=== PATIENT | female | born 1965 | race Caucasian/White ===

== ENCOUNTER → 2018-10-12 | Outpatient (CLI) | payer BC ==
[~2018-10-12] MED LIST: ALBUTEROL INH; COUGH MEDICINE PO; FURO-93 PO; GADOBUTROL 7.5 MMOL/7.5 ML VIAL ONE; MAGNESIUM PO; POTASSIUM PO
== END | disposition home or self-care (01) ==
LOC: CFH 12:44 → MERGE 12:44
PROVIDERS: ATTEND Internal Medicine
DX: R91.8 Other nonspecific abnormal finding of lung field (principal); I31.3 Pericardial effusion (noninflammatory); N28.89 Other specified disorders of kidney and ureter; R59.0 Localized enlarged lymph nodes; G95.89 Other specified diseases of spinal cord; Z98.890 Other specified postprocedural states
CPT/HCPCS: 70553; 71250; A9585

== ENCOUNTER → 2018-10-17 | Outpatient (CLI) | payer BC ==
[~2018-10-17] MED LIST changes: -GADOBUTROL 7.5 MMOL/7.5 ML VIAL ONE; +SIMV40TA3 PO
== END | disposition home or self-care (01) ==
LOC: MERGE 07:21 → PETCFH 07:21
PROVIDERS: ATTEND Internal Medicine
DX: C79.51 Secondary malignant neoplasm of bone (principal); C77.2 Secondary and unspecified malignant neoplasm of intra-abdominal lymph nodes; N28.89 Other specified disorders of kidney and ureter; J90 Pleural effusion, not elsewhere classified; K57.30 Diverticulosis of large intestine without perforation or abscess without bleeding
CPT/HCPCS: 78815; A9552

== ENCOUNTER 2018-10-22 10:54 | Inpatient (IN) | payer BC ==
[~2018-10-22] VITALS: Ht 175.3 cm; Wt 70.0 kg
[~2018-10-22 10:54] MED LIST changes: -SIMV40TA3 PO
[2018-10-22 14:36] VITALS: BP 123/80
[2018-10-22] MEDS ORDERED: SIMV40TA3 PO (15:21)
[2018-10-22] MEDS ORDERED: morphine SULFATE 10 MG/ML, 1ML IVPush PRN (15:30)
[2018-10-22] MEDS ORDERED: hydrALAzine 20 MG/ML, 1ML IVPush PRN (15:30)
[2018-10-22] MEDS ORDERED: ONDANSETRON 2MG/ML, 2ML IVPush PRN (15:30)
[2018-10-22] MEDS ORDERED: ACETAMINOPHEN 325 MG TABLET PO PRN (15:30)
[2018-10-22 15:58] LABS: BASOPHILS # (AUTO) 0.03 x10^3/uL (0-0.1); BASOPHILS % (AUTO) 0 % (0-1); EOSINOPHILS % (AUTO) 0 % (1-7); LYMPHOCYTES # (AUTO) 1.22 x10^3/uL (1-3.4); LYMPHOCYTES % (AUTO) 11 % (22-44); MD NO; MEAN CORPUSCULAR HEMOGLOBIN 28.8 pg (27.0-34.8); MEAN CORPUSCULAR HGB CONC 33.1 g/dL (32.4-35.8); MEAN CORPUSCULAR VOLUME 87.2 fL (80-100); MEAN PLATELET VOLUME 9.4 fL (7.4-10.4); MONOCYTES # (AUTO) 0.83 x10^3/uL (0.2-0.8); MONOCYTES % (AUTO) 8 % (2-9); NEUTROPHILS # (AUTO) 8.67 x10^3/uL (1.8-6.8); NEUTROPHILS % (AUTO) 81 % (42-75); PLATELET COUNT 318 x10^3/uL (130-400); RED BLOOD COUNT 5.14 x10^6/uL (3.82-5.3); RED CELL DISTRIBUTION WIDTH 12.5 % (9.6-15.2)
[2018-10-22] MEDS: INSULIN LISPRO 100 UNITS/ML, PEN SQ-INSULIN SCH ×2 (15:58→20:39)
[2018-10-22] MEDS ORDERED: ALBUTEROL SULFATE 2.5 MG/3 ML NPPB PRN ×2 (16:00→22:00)
[2018-10-22] MEDS ORDERED: GLUCAGON 1 MG IM PRN (16:00)
[2018-10-22] MEDS ORDERED: DEXTROSE 50%, 50ML SYRINGE IVPush PRN (16:00)
[2018-10-22] MEDS ORDERED: DEXTROSE 4 GM TAB.CHEW PO PRN (16:00)
[2018-10-22 16:05] LABS: ALANINE AMINOTRANSFERASE 22 U/L (12-78); ALBUMIN 3.1 g/dL (3.4-5.0); ANION GAP 10 mmol/L (5-15); CALCIUM 9.6 mg/dL (8.5-10.1); CHLORIDE 85 mmol/L (98-107)
[2018-10-22 16:10] LABS: ALKALINE PHOSPHATASE 72 U/L (45-117); BILIRUBIN,TOTAL 0.4 mg/dL (0.2-1.0); TOTAL PROTEIN 6.5 g/dL (6.4-8.2)
[2018-10-22] MEDS ORDERED: POTASSIUM CHLORIDE 20 MEQ TAB.ER.PRT PO ONE (16:30)
[2018-10-22 16:31] LABS: INTERNATIONAL NORMALIZED RATIO 1.06 (0.93-1.1); PROTHROMBIN TIME 11.1 Seconds (9.6-11.5)
[2018-10-22 17:08] LABS: HEMOGLOBIN A1C 6.6 % (4.2-6.3)
[2018-10-22 19:02] VITALS: BP 112/72
[2018-10-22] MEDS: SIMVASTATIN 40 MG TABLET PO SCH (20:40)
[2018-10-22] MEDS ORDERED: DIPHENHYDRAMINE 50 MG CAPSULE PO PRN (21:00)
[2018-10-22] MEDS ORDERED: SODIUM CHLORIDE FLUSH 10ML SYR IVF SCH (21:00)
[2018-10-23 01:51] VITALS: BP 106/67
[2018-10-23] MEDS: OXYcodone IR 5MG TABLET PO PRN ×4 (02:52→20:16)
[2018-10-23 04:38] LABS: ANION GAP 10 mmol/L (5-15); CHLORIDE 87 mmol/L (98-107)
[2018-10-23 04:42] LABS: ALANINE AMINOTRANSFERASE 22 U/L (12-78); ALKALINE PHOSPHATASE 70 U/L (45-117); BILIRUBIN,TOTAL 0.8 mg/dL (0.2-1.0); CREATININE 0.62 mg/dL (0.55-1.02); TOTAL PROTEIN 6.6 g/dL (6.4-8.2)
[2018-10-23 06:26] LABS: BASOPHILS # (AUTO) 0.03 x10^3/uL (0-0.1); BASOPHILS % (AUTO) 0 % (0-1); EOSINOPHILS # (AUTO) 0.02 x10^3/uL (0-0.4); EOSINOPHILS % (AUTO) 0 % (1-7); LYMPHOCYTES # (AUTO) 2.38 x10^3/uL (1-3.4); LYMPHOCYTES % (AUTO) 18 % (22-44); MD NO; MEAN CORPUSCULAR HEMOGLOBIN 29.1 pg (27.0-34.8); MEAN CORPUSCULAR HGB CONC 33.6 g/dL (32.4-35.8); MEAN CORPUSCULAR VOLUME 86.7 fL (80-100); MEAN PLATELET VOLUME 9.3 fL (7.4-10.4); MONOCYTES # (AUTO) 1.29 x10^3/uL (0.2-0.8); MONOCYTES % (AUTO) 10 % (2-9); NEUTROPHILS % (AUTO) 73 % (42-75); PLATELET COUNT 320 x10^3/uL (130-400); RED BLOOD COUNT 5.28 x10^6/uL (3.82-5.3); RED CELL DISTRIBUTION WIDTH 12.8 % (9.6-15.2)
[2018-10-23] MEDS: INSULIN LISPRO 100 UNITS/ML, PEN SQ-INSULIN SCH (07:00)
[2018-10-23 07:33] VITALS: BP 112/71
[2018-10-23] MEDS ORDERED: METHOCARBAMOL 500 MG TABLET PO PRN (08:30)
[2018-10-23] MEDS ORDERED: NALOXONE 1 MG/ML, 2ML ONE (09:09)
[2018-10-23] MEDS ORDERED: FLUMAZENIL 0.1 MG/1 ML, 5ML ONE (09:09)
[2018-10-23] MEDS ORDERED: MIDAZOLAM 1 MG/ML, 5ML ONE (09:09)
[2018-10-23] MEDS ORDERED: FENTANYL PF 100 MCG/2ML ONE (09:09)
[2018-10-23] MEDS ORDERED: POTASSIUM CHLORIDE 20 MEQ TAB.ER.PRT PO ONE (12:00)
[2018-10-23 13:45] VITALS: BP 110/79
[2018-10-23 19:07] VITALS: BP 111/69
[2018-10-23] MEDS: SIMVASTATIN 40 MG TABLET PO SCH (20:17)
[2018-10-24 01:07] VITALS: BP 137/79
[2018-10-24] MEDS: OXYcodone IR 5MG TABLET PO PRN ×5 (03:54→20:23)
[2018-10-24 05:40] LABS: ALANINE AMINOTRANSFERASE 27 U/L (12-78); ANION GAP 7 mmol/L (5-15); CALCIUM 9.6 mg/dL (8.5-10.1); CHLORIDE 89 mmol/L (98-107); CREATININE 0.47 mg/dL (0.55-1.02)
[2018-10-24 05:42] LABS: ALKALINE PHOSPHATASE 93 U/L (45-117); BILIRUBIN,TOTAL 0.9 mg/dL (0.2-1.0); TOTAL PROTEIN 6.4 g/dL (6.4-8.2)
[2018-10-24 07:45] VITALS: BP 123/76
[2018-10-24 08:46] LABS: BASOPHILS # (AUTO) 0.03 x10^3/uL (0-0.1); BASOPHILS % (AUTO) 0 % (0-1); EOSINOPHILS # (AUTO) 0.05 x10^3/uL (0-0.4); EOSINOPHILS % (AUTO) 0 % (1-7); LYMPHOCYTES # (AUTO) 1.34 x10^3/uL (1-3.4); LYMPHOCYTES % (AUTO) 9 % (22-44); MD NO; MEAN CORPUSCULAR HEMOGLOBIN 28.9 pg (27.0-34.8); MEAN CORPUSCULAR HGB CONC 33.2 g/dL (32.4-35.8); MEAN CORPUSCULAR VOLUME 87.2 fL (80-100); MEAN PLATELET VOLUME 9.1 fL (7.4-10.4); MONOCYTES # (AUTO) 1.12 x10^3/uL (0.2-0.8); MONOCYTES % (AUTO) 7 % (2-9); NEUTROPHILS # (AUTO) 13.09 x10^3/uL (1.8-6.8); NEUTROPHILS % (AUTO) 84 % (42-75); PLATELET COUNT 267 x10^3/uL (130-400); RED BLOOD COUNT 5.39 x10^6/uL (3.82-5.3); RED CELL DISTRIBUTION WIDTH 12.6 % (9.6-15.2)
[2018-10-24 08:57] LABS: ANION GAP 8 mmol/L (5-15); CALCIUM 9.7 mg/dL (8.5-10.1); CHLORIDE 87 mmol/L (98-107); CREATININE 0.53 mg/dL (0.55-1.02)
[2018-10-24] MEDS ORDERED: POTASSIUM CHLORIDE 20 MEQ TAB.ER.PRT PO ONE ×2 (09:00→14:30)
[2018-10-24] MEDS ORDERED: FUROSEMIDE 20 MG TABLET PO ONE (11:00)
[2018-10-24 13:20] VITALS: BP 116/75
[2018-10-24] MEDS ORDERED: FUROSEMIDE 40 MG/4 ML IV ONE (14:30)
[2018-10-24 17:34] VITALS: BP 131/70
[2018-10-24 19:43] VITALS: BP 117/73
[2018-10-24] MEDS: SIMVASTATIN 40 MG TABLET PO SCH (20:24)
[2018-10-25 03:09] VITALS: BP 115/69
[2018-10-25 04:26] LABS: MEAN CORPUSCULAR HEMOGLOBIN 28.9 pg (27.0-34.8); MEAN CORPUSCULAR HGB CONC 33.2 g/dL (32.4-35.8); MEAN CORPUSCULAR VOLUME 87.3 fL (80-100); MEAN PLATELET VOLUME 9.6 fL (7.4-10.4); PLATELET COUNT 254 x10^3/uL (130-400); RED BLOOD COUNT 5.29 x10^6/uL (3.82-5.3); RED CELL DISTRIBUTION WIDTH 12.5 % (9.6-15.2)
[2018-10-25] MEDS: OXYcodone IR 5MG TABLET PO PRN ×4 (04:27→20:38)
[2018-10-25 04:36] LABS: ANION GAP 9 mmol/L (5-15); CHLORIDE 89 mmol/L (98-107); CREATININE 0.58 mg/dL (0.55-1.02)
[2018-10-25 05:45] LABS: BASOPHILS # (AUTO) 0.04 x10^3/uL (0-0.1); BASOPHILS % (AUTO) 0 % (0-1); EOSINOPHILS # (AUTO) 0.05 x10^3/uL (0-0.4); EOSINOPHILS % (AUTO) 0 % (1-7); LYMPHOCYTES # (AUTO) 1.33 x10^3/uL (1-3.4); LYMPHOCYTES % (AUTO) 7 % (22-44); MD SCAN; MONOCYTES # (AUTO) 1.32 x10^3/uL (0.2-0.8); MONOCYTES % (AUTO) 7 % (2-9); NEUTROPHILS # (AUTO) 15.32 x10^3/uL (1.8-6.8); NEUTROPHILS % (AUTO) 85 % (42-75)
[2018-10-25 07:25] VITALS: BP 117/55
[2018-10-25] MEDS ORDERED: ALBUTEROL SULFATE 2.5 MG/3 ML NPPB PRN (07:30)
[2018-10-25] MEDS ORDERED: POTASSIUM CHLORIDE 20 MEQ TAB.ER.PRT PO ONE (09:00)
[2018-10-25] MEDS ORDERED: FUROSEMIDE 40 MG/4 ML IV SCH (09:00)
[2018-10-25] MEDS ORDERED: PIPERACILLIN/TAZO/PMX 3.375GM 50 ML IV SCH (10:00)
[2018-10-25 12:08] VITALS: BP 122/76
[2018-10-25] MEDS ORDERED: PANTOPRAZOLE 40 MG IV IVPush SCH (16:30)
[2018-10-25] MEDS ORDERED: LORazepam 2 MG/ML, 1ML IVPush ONE (16:30)
[2018-10-25 19:58] VITALS: BP 121/75
[2018-10-25] MEDS: SIMVASTATIN 40 MG TABLET PO SCH (20:38)
[2018-10-25] MEDS: LORazepam 0.5MG TABLET PO PRN (20:38)
[2018-10-26 00:59] VITALS: BP 116/74
[2018-10-26] MEDS: OXYcodone IR 5MG TABLET PO PRN ×4 (01:22→15:52)
[2018-10-26] MEDS ORDERED: PANTOPRAZOLE 20MG TABLET PO SCH (06:00)
[2018-10-26 07:12] LABS: BASOPHILS # (AUTO) 0.02 x10^3/uL (0-0.1); BASOPHILS % (AUTO) 0 % (0-1); EOSINOPHILS # (AUTO) 0.06 x10^3/uL (0-0.4); EOSINOPHILS % (AUTO) 0 % (1-7); LYMPHOCYTES # (AUTO) 1.51 x10^3/uL (1-3.4); LYMPHOCYTES % (AUTO) 10 % (22-44); MD NO; MEAN CORPUSCULAR HEMOGLOBIN 28.9 pg (27.0-34.8); MEAN CORPUSCULAR HGB CONC 33.1 g/dL (32.4-35.8); MEAN CORPUSCULAR VOLUME 87.1 fL (80-100); MONOCYTES % (AUTO) 9 % (2-9); NEUTROPHILS # (AUTO) 12.12 x10^3/uL (1.8-6.8); NEUTROPHILS % (AUTO) 81 % (42-75); PLATELET COUNT 219 x10^3/uL (130-400); RED BLOOD COUNT 5.17 x10^6/uL (3.82-5.3); RED CELL DISTRIBUTION WIDTH 12.4 % (9.6-15.2)
[2018-10-26 07:22] LABS: ANION GAP 8 mmol/L (5-15); CALCIUM 9.8 mg/dL (8.5-10.1); CHLORIDE 91 mmol/L (98-107); CREATININE 0.54 mg/dL (0.55-1.02)
[2018-10-26 08:40] VITALS: BP 117/73
[2018-10-26] MEDS ORDERED: POTASSIUM CHLORIDE 10% 40 MEQ/30 ML UDC PO ONE (09:00)
[2018-10-26] MEDS ORDERED: FUROSEMIDE 40 MG/4 ML IV ONE (09:00)
[2018-10-26] MEDS ORDERED: DIPH50CA PO (09:07)
[2018-10-26] MEDS ORDERED: ONDA4TAB13 SL (09:07)
[2018-10-26] MEDS ORDERED: OXYC5TAB3 PO (09:07)
[2018-10-26] MEDS ORDERED: PANT20TA3 PO (09:07)
[2018-10-26] MEDS ORDERED: LORA0.5T PO (09:07)
[2018-10-26] MEDS ORDERED: POTASSIUM CHLORIDE 20 MEQ TAB.ER.PRT ONE (10:06)
[2018-10-26] MEDS: LORazepam 0.5MG TABLET PO PRN (15:52)
[2018-10-27] MEDS ORDERED: SPIRONOLACTONE 25 MG TABLET PO SCH (09:00)
== END 2018-10-26 15:54 | disposition home or self-care (01) | DRG 686 ==
LOC: 5SO 14:16 → 3NW 10-24 17:07 → DCLOUNGE 10-26 15:39
PROVIDERS: ADMIT Internal Medicine; ATTEND Internal Medicine
PROC: 0TB03ZX Excision of Right Kidney, Percutaneous Approach, Diagnostic (ICD-10-PCS; principal; 2018-10-23)
DX: C64.9 Malignant neoplasm of unspecified kidney, except renal pelvis (principal); J96.91 Respiratory failure, unspecified with hypoxia; E87.1 Hypo-osmolality and hyponatremia; C78.00 Secondary malignant neoplasm of unspecified lung; C79.51 Secondary malignant neoplasm of bone; J81.1 Chronic pulmonary edema; J90 Pleural effusion, not elsewhere classified; C79.89 Secondary malignant neoplasm of other specified sites; C77.9 Secondary and unspecified malignant neoplasm of lymph node, unspecified; E87.6 Hypokalemia; F41.9 Anxiety disorder, unspecified; I48.91 Unspecified atrial fibrillation; J30.2 Other seasonal allergic rhinitis; Z51.5 Encounter for palliative care; Z87.01 Personal history of pneumonia (recurrent); Z87.891 Personal history of nicotine dependence; R73.9 Hyperglycemia, unspecified
CPT/HCPCS: 36415; 50200; 71045; 71046; 71250; 77012; 80048; 80053; 82962; 83036; 83605; 83735; 83880; 84100; 84145; 85025; 85610; 87040; 88305; 93306; 93970; 99156; 99157; G0378; J1940; J2250; J3010; C9113; J2060; J2270; J2310

== ENCOUNTER 2018-11-05 00:22 | Inpatient (IN) | payer BC ==
[~2018-11-05] VITALS: Ht 170.2 cm; Wt 67.3 kg
[2018-11-10 04:00] VITALS: BP 108/71
== END 2018-11-10 15:10 | disposition expired | DRG 686 ==
LOC: ED 00:56 → EDIP 01:34 → 4EST 02:22 → CCU 11-08 17:47 → ICU 11-09 19:26 → 3NW 11-10 08:33
PROVIDERS: ADMIT Internal Medicine; ATTEND Internal Medicine
DX: C64.1 Malignant neoplasm of right kidney, except renal pelvis (principal); J15.9 Unspecified bacterial pneumonia; J96.01 Acute respiratory failure with hypoxia; I31.3 Pericardial effusion (noninflammatory); C79.51 Secondary malignant neoplasm of bone; I50.30 Unspecified diastolic (congestive) heart failure; J98.19 Other pulmonary collapse; R18.8 Other ascites; C78.00 Secondary malignant neoplasm of unspecified lung; R13.10 Dysphagia, unspecified; F17.210 Nicotine dependence, cigarettes, uncomplicated; F41.1 Generalized anxiety disorder; G89.29 Other chronic pain; Y95 Nosocomial condition; I11.0 Hypertensive heart disease with heart failure; I48.91 Unspecified atrial fibrillation; Z51.5 Encounter for palliative care; Z66 Do not resuscitate; Z82.49 Family history of ischemic heart disease and other diseases of the circulatory system; Z85.528 Personal history of other malignant neoplasm of kidney; Z87.01 Personal history of pneumonia (recurrent); Z79.899 Other long term (current) drug therapy
CPT/HCPCS: 36415; 36600; 84145; 99285; J7613; 71045; 71275; 80048; 80053; 80202; 82436; 82533; 82570; 82803; 82962; 83605; 83735; 83935; 84133; 84300; 84443; 85025; 87040; 87070; 87081; 87205; 87324; 87493; 93005; 94667; 96374; 96375; G0378; J0456; J0692; J0696; J1650; J1940; J2405; J3370; J0360; J2060; J2270; J7030; J7050